=== PATIENT | male | born 1970 ===

== ENCOUNTER 2017-03-12 20:59 | Emergency (ER) | payer OTHER ==
[2017-03-12 21:52] VITALS: BP 161/118
--- NOTE | 2017-03-13 01:46 | XRay Report ---
FINAL REPORT PROCEDURE: XR HAND 3+V LT TECHNIQUE: LEFT hand radiographs, AP, lateral, and oblique views. CPT [id number] HISTORY: hand pain post fall thru roof COMPARISON: No prior studies are available for comparison. FINDINGS: Fracture (s) and/or Dislocation(s): None . Alignment: Normal . Joint space(s): Normal . Soft tissues: Normal . Bone mineralization: Normal . Foreign bodies: None . IMPRESSION: Normal Examination .
== END 2017-03-13 01:03 | disposition left against medical advice (07) ==
LOC: ED 20:59
DX: M79.603 Pain in arm, unspecified (principal); Z53.21 Procedure and treatment not carried out due to patient leaving prior to being seen by health care provider